=== PATIENT | female | born 1970 | race Caucasian/White ===

== ENCOUNTER 2017-08-02 09:14 | Day surgery (SDC) | payer OTHER ==
[2017-08-02 09:48] VITALS: BMI 37.6
[2017-08-02] MEDS ORDERED: BUPIVACAINE HCL/PF 2.5 MG/ML - 30 ML VIAL IJ ONE (10:28)
[2017-08-02] MEDS ORDERED: MIDAZOLAM HCL 2 MG/2 ML SINGLE DOSE VIAL ONE (10:39)
[2017-08-02] MEDS ORDERED: PROPOFOL 20 ML ONE (11:00)
[2017-08-02] MEDS ORDERED: ceFAZolin SODIUM 1 GM VIAL ONE (11:09)
[2017-08-02] MEDS ORDERED: ONDANSETRON 4 MG/2 ML VIAL ONE (11:23)
[2017-08-02] MEDS ORDERED: DEXAMETHASONE SOD PHOSPHATE 4 MG/1 ML VIAL ONE (11:23)
[2017-08-02] MEDS ORDERED: KETOROLAC TROMETHAMINE 30 MG/1 ML VIAL IVPUSH ONE ×2 (11:34→11:41)
[2017-08-02] MEDS ORDERED: KETOROLAC TROMETHAMINE 30 MG/1 ML VIAL ONE (11:38)
[2017-08-02] MEDS ORDERED: ONDANSETRON 4 MG/2 ML VIAL IVPUSH PRN (11:41)
[2017-08-02] MEDS ORDERED: oxyCODONE HCL 5 MG TABLET PO PRN (11:41)
[2017-08-02] MEDS ORDERED: ACETAMINOPHEN 325 MG TABLET (FP) PO PRN (11:41)
[2017-08-02] MEDS ORDERED: LACTATED RINGERS SOLUTION 1,000 ML IV SCH (11:45)
[2017-08-02] MEDS ORDERED: oxyCODONE HCL 5 MG TABLET ONE (13:01)
[2017-08-02 14:26] VITALS: BP 121/79; PULSE 70; TEMP 97.9
--- NOTE | 2017-08-08 12:18 | OP ---
DATE OF OPERATION: 08/02/2017 PREOPERATIVE DIAGNOSIS: Right knee medial meniscal tear. POSTOPERATIVE DIAGNOSIS: Right knee medial meniscal tear. PROCEDURE: Right knee arthroscopy with partial medial meniscectomy. ANESTHESIA: General. POSTOPERATIVE CONDITION: Stable. COMPLICATIONS: None. INDICATIONS: This is a pleasant 47-year-old female who has been suffering from medial knee pain. Treatment options including nonoperative versus operative treatment were reviewed. Operative risks were reviewed in detail including bleeding, infection, neurovascular injury, need for further surgery, postop pain and stiffness, progression of osteoarthritis, iatrogenic cartilage injury. We discussed medical risks such as heart attack, stroke, DVT, PE, and . I addressed all the patient's questions and concerns. She voiced understanding and elected to proceed. DESCRIPTION OF PROCEDURE: The patient was brought to the operating room where general anesthesia was administered. The right lower extremity was then prepped and draped in the usual sterile fashion. A preoperative dose of antibiotics was given, and the usual timeout procedure was performed. The portal sites were now injected subcutaneously with 0.25% Marcaine. An 11 blade was used to establish the lateral portal. The arthroscope was now passed into the knee. Examination of the patellofemoral joint demonstrated some mild articular wear, more so laterally on the patellar surface. The trochlea was unremarkable. Passing the arthroscope into the notch demonstrated intact ACL and PCL. Passing the arthroscope into the medial compartment, a medial portal was established under spinal needle localization. There was high-grade partial thickness fissuring along the medial femoral condyle articular surface. On the posterior horn of the medial meniscus, a complex tear was noted. Utilizing a combination of meniscal biter and shaver, this was debrided down to a stable base. The arthroscope was now passed in the lateral compartment. Here, there were no articular lesions and no meniscal lesions seen upon probing. The excess fluid was now withdrawn from the joint. The portals were sutured using 3-0 nylon. Sterile dressings were placed. The patient was extubated and transferred to recovery room in stable condition. Christopher [id number]
== END 2017-08-02 14:19 | disposition home or self-care (01) ==
LOC: FASU 09:14
PROVIDERS: ATTEND Orthopaedic Surgery Sports Medicine
PROC: 0SBC4ZZ Excision of Right Knee Joint, Percutaneous Endoscopic Approach (ICD-10-PCS; principal; 2017-08-02 11:12)
DX: S83.241A Other tear of medial meniscus, current injury, right knee, initial encounter (principal); X58.XXXA Exposure to other specified factors, initial encounter; Y93.9 Activity, unspecified; Y92.9 Unspecified place or not applicable
CPT/HCPCS: 82962; 94760